=== PATIENT | male | born 1955 | race African-American/Black ===

== ENCOUNTER 2020-12-15 23:54 | Inpatient (IN) | payer MEDICAID, OTHER ==
[~2020-12-15] VITALS: Ht 177.8 cm; Wt 83.9 kg
--- NOTE | 2020-12-16 00:13 | NUR ---
Patient BIB [facility] ambulance unit [id number] from [facility] acute for increase agitation, AMS. Reported that pt is confused but is more aggressive than his baseline. No SOB or labored breathing, afebrile. Clear speech.
[2020-12-16] MEDS ORDERED: HALOPERIDOL LACTATE 5 MG/1 ML VIAL IM ONE (00:15)
[2020-12-16] MEDS ORDERED: HALOPERIDOL LACTATE 5 MG/1 ML VIAL ONE (00:31)
[2020-12-16 01:30] LABS: HEMATOCRIT 41.2 % (36.7-47.1); MEAN CORPUSCULAR VOLUME 90.5 fL (73.0-96.2); PLATELET COUNT (AUTO) 179 K/uL (152-348)
[2020-12-16 01:37] LABS: ETHANOL < 3 MG/DL (0-0)
--- NOTE | 2020-12-16 01:40 | NUR ---
XRAY at beside.
[2020-12-16 01:42] LABS: *BILIRUBIN,URIN NEGATIVE (NEGATIVE); *BLOOD, URINE 2+ (NEGATIVE); *CLARITY,URINE CLOUDY (CLEAR); *COLOR,URINE YELLOW (YELLOW); *KETONES,URINE NEGATIVE (NEGATIVE); LEUKOCYTE ESTERASE ,URINE TRACE (NEGATIVE); NITRITE, URINE POSITIVE (NEGATIVE); UGLUCOSE NEGATIVE (NEGATIVE)
[2020-12-16 01:43] LABS: ALANINE AMINOTRANSFERASE 25 U/L (16-63); ALKALINE PHOSPHATASE 82 U/L (50-136); ASPARTATE AMINOTRANSFERASE 18 U/L (15-37); BILIRUBIN,DIRECT 0.2 mg/dL (0.0-0.2); BILIRUBIN,TOTAL 0.5 mg/dL (0.2-1.0); CARBON DIOXIDE 29 mmol/L (21-32); CHLORIDE 105 mmol/L (98-107); GLUCOSE 97 mg/dL (74-106); POTASSIUM 3.6 mmol/L (3.5-5.1); TOTAL PROTEIN, SERUM 8.1 g/dL (6.4-8.2); UREA NITROGEN, BLOOD 18 mg/dL (7-18)
[2020-12-16 01:50] LABS: BACTERIA,URINE MANY /HPF (NONE SEEN); RBC,URINE 20-50 /HPF (0-3); SQUAMOUS EPITHELIAL CELL,UR FEW /HPF (NONE SEEN)
[2020-12-16 01:56] LABS: *AMPHETAMINE, URINE NEGATIVE (NEGATIVE); *CANNABINOID, URINE NEGATIVE (NEGATIVE); *COCCAINE, URINE NEGATIVE (NEGATIVE); *OPIATE, URINE NEGATIVE (NEGATIVE); *PHENCYCLIDINE SCREEN,URINE NEGATIVE (NEGATIVE)
--- NOTE | 2020-12-16 02:10 | NUR ---
Assisted pt to use urinal. Patient is now resting comfortably in bed with eyes closed.
[2020-12-16] MEDS ORDERED: CEFTRIAXONE 2 G in IV DEXTROSE 5% 100 ML IV ONE (02:30)
[2020-12-16] MEDS ORDERED: CEFTRIAXONE /D5W 50ML IVPB **ER PYXIS IV ONE (02:41)
[2020-12-16] MEDS ORDERED: LISI20TA30 PO (02:49)
[2020-12-16] MEDS ORDERED: DIVA125C2 PO ×3 (02:49)
[2020-12-16] MEDS ORDERED: AMLO-212 PO (02:49)
[2020-12-16] MEDS ORDERED: vitamin d2 PO (02:49)
[2020-12-16] MEDS ORDERED: DOCU-141 PO (02:49)
[2020-12-16] MEDS ORDERED: QUET25TA PO ×3 (02:49)
--- NOTE | 2020-12-16 03:50 | NUR ---
Patient is resting comfortably in bed with eyes closed. bed in lowest position for safety precautions.
--- NOTE | 2020-12-16 04:21 | NUR ---
Gave report to aneesh Valencia going to room 301B med surg bed.
--- NOTE | 2020-12-16 04:24 | NUR ---
Pt. admitted to Med Surg , under care of Dx: UTI Belongs List completed
--- NOTE | 2020-12-16 04:47 | NUR ---
Admitted patient from ER via gurney, awake, alert, calm, cooperative to care. Routine admission care done. Plan of care initiated.
[2020-12-16 05:00] VITALS: BP 160/95
[2020-12-16 05:47] VITALS: BP 160/95
[2020-12-16] MEDS ORDERED: ACETAMINOPHEN 325 MG TABLET PO PRN (06:15)
[2020-12-16] MEDS ORDERED: HYDROCODONE/APAP 5-325MG TABLET PO PRN (06:15)
[2020-12-16] MEDS ORDERED: LORAZEPAM 2 MG/1 ML VIAL IV PRN (06:15)
--- NOTE | 2020-12-16 08:00 | NUR ---
aroused from sleep- pt oriented to self only, repositioned and served breakfast, left arm stiff but able to left up at certain height, able to take meds with apple sauce, aspirtion precaution observed, calm at this time, safety measures maintained,
[2020-12-16] MEDS: CHOLECALCIFEROL 1,000 UNIT TABLET PO SCH (08:31)
[2020-12-16] MEDS: DIVALPROEX SPRINKLE 125 MG CAP.SPRINK PO SCH ×3 (08:31→19:58)
[2020-12-16] MEDS: QUETIAPINE FUMARATE 25 MG TABLET PO SCH ×3 (08:32→19:57)
[2020-12-16] MEDS: AMLODIPINE 5 MG TABLET PO SCH (08:33)
[2020-12-16] MEDS: LISINOPRIL 20 MG TABLET PO SCH (08:33)
[2020-12-16] MEDS: PANTOPRAZOLE SODIUM 40 MG TABLET.DR PO SCH (08:34)
[2020-12-16] MEDS ORDERED: VITAMIN D2 PO SCH (09:00)
--- NOTE | 2020-12-16 09:00 | NUR ---
called Dr Yates for psych consult
[2020-12-16 12:00] VITALS: BP 107/81
[2020-12-16] MEDS ORDERED: QUETIAPINE FUMARATE 25 MG TABLET PO PRN (15:15)
[2020-12-16 16:00] VITALS: BP 122/76
--- NOTE | 2020-12-16 17:42 | NUR ---
Dr Yates here earler and saw pt- see notes and orders
--- NOTE | 2020-12-16 18:31 | NUR ---
family member visiting, no distress noted, 02 at 2l/nc, denies of shortness of breath, head of bed elevated, repositioned and made comfortable, all needs attended and met, safety measures maintained, call light within reach
[2020-12-16] MEDS: DOCUSATE SODIUM 100 MG CAPSULE PO SCH (19:58)
[2020-12-16 20:35] VITALS: BP 138/89
[2020-12-17] MEDS: CEFTRIAXONE 1 G in IV DEXTROSE 5% 50 ML IV SCH ×2 (00:05→23:57)
[2020-12-17 04:20] VITALS: BP 134/74
[2020-12-17] MEDS: PANTOPRAZOLE SODIUM 40 MG TABLET.DR PO SCH (06:10)
[2020-12-17 08:00] VITALS: BP 133/87
[2020-12-17] MEDS: DIVALPROEX SPRINKLE 125 MG CAP.SPRINK PO SCH ×3 (08:38→20:10)
[2020-12-17] MEDS: QUETIAPINE FUMARATE 25 MG TABLET PO SCH ×3 (08:38→20:11)
[2020-12-17] MEDS: LISINOPRIL 20 MG TABLET PO SCH (08:38)
[2020-12-17] MEDS: AMLODIPINE 5 MG TABLET PO SCH (08:39)
[2020-12-17] MEDS: CHOLECALCIFEROL 1,000 UNIT TABLET PO SCH (08:39)
[2020-12-17 10:23] LABS: HEMATOCRIT 42.8 % (36.7-47.1); MEAN CORPUSCULAR HEMOGLOBIN 29.7 uug (23.8-33.4); MEAN CORPUSCULAR VOLUME 92.5 fL (73.0-96.2); PLATELET COUNT (AUTO) 159 K/uL (152-348)
[2020-12-17 10:33] LABS: BILIRUBIN,TOTAL 0.3 mg/dL (0.2-1.0); CREATININE 0.9 mg/dL (0.6-1.3); MAGNESIUM 2.4 mg/dL (1.8-2.4); PHOSPHOROUS 3.1 mg/dL (2.5-4.9); POTASSIUM 3.9 mmol/L (3.5-5.1); TOTAL PROTEIN, SERUM 7.4 g/dL (6.4-8.2)
[2020-12-17 10:43] LABS: THYROID STIMULATING HORMONE 1.063 mIU/mL (0.358-3.740)
[2020-12-17 11:33] VITALS: BP 130/81
[2020-12-17 15:09] VITALS: BP 126/77
[2020-12-17] MEDS: DOCUSATE SODIUM 100 MG CAPSULE PO SCH (20:10)
[2020-12-17 20:36] VITALS: BP 100/76
--- NOTE | 2020-12-18 03:39 | NUR ---
Patient alert and verbally responsive with periods of confusion.On RA ,no s/s of distress noted. Denies pain at this time. Iv on left Fa 20g patent and intact .Administered IV ATB as ordered for UTI , no a/r noted. Due meds given. Patient noted restlessness .Ativan IVP given with good effect. Safety measures in place. VSS.
[2020-12-18 04:33] VITALS: BP 124/84
[2020-12-18] MEDS: PANTOPRAZOLE SODIUM 40 MG TABLET.DR PO SCH (06:03)
[2020-12-18 06:41] LABS: HEMATOCRIT 43.6 % (36.7-47.1); MEAN CORPUSCULAR HEMOGLOBIN 29.9 uug (23.8-33.4); MEAN CORPUSCULAR VOLUME 91.3 fL (73.0-96.2); PLATELET COUNT (AUTO) 187 K/uL (152-348)
[2020-12-18 07:10] LABS: CREATININE 0.9 mg/dL (0.6-1.3); MAGNESIUM 2.4 mg/dL (1.8-2.4); PHOSPHOROUS 3.2 mg/dL (2.5-4.9); POTASSIUM 4.7 mmol/L (3.5-5.1)
--- NOTE | 2020-12-18 07:30 | NUR ---
Received report from BERTO Vu. All questions, comments, and concerns were addressed. Received patient asleep in his assigned bed. Bed is in low and locked position with bed alarm on. Respirations are even and unlabored, no signs of respiratory distress noted. Addendum: 12/18/20 at 1237 by JAMES MORTENSEN RN Received report from BERTO Sanchez. Did not received report from BERTO Vu.
[2020-12-18] MEDS: DIVALPROEX SPRINKLE 125 MG CAP.SPRINK PO SCH ×3 (10:12→20:00)
[2020-12-18] MEDS: CHOLECALCIFEROL 1,000 UNIT TABLET PO SCH (10:12)
[2020-12-18] MEDS: LISINOPRIL 20 MG TABLET PO SCH (10:13)
[2020-12-18] MEDS: QUETIAPINE FUMARATE 25 MG TABLET PO SCH ×3 (10:13→20:00)
[2020-12-18] MEDS: AMLODIPINE 5 MG TABLET PO SCH (10:13)
[2020-12-18 12:00] VITALS: BP 134/87
--- NOTE | 2020-12-18 12:37 | NUR ---
patient is alert and oriented to name only. Patient does not respond in logical, coherent manner. He is mumbling and speaking to himself. Patient appears to be RTIS, speaking and singing to unknown others. Patient is compliant with care. Compliant with medications, crushed. Patient requires 2 staff to perform his care and ADL's because is resistive. Patient requires constant redirection during care. Respirations are even and unlabored.
[2020-12-18 16:00] VITALS: BP 121/71
[2020-12-18 19:59] VITALS: BP 129/89
[2020-12-18] MEDS: DOCUSATE SODIUM 100 MG CAPSULE PO SCH (20:00)
[2020-12-19] MEDS: CEFTRIAXONE 1 G in IV DEXTROSE 5% 50 ML IV SCH (00:31)
[2020-12-19 04:03] VITALS: BP 144/99
--- NOTE | 2020-12-19 05:43 | NUR ---
Patient alert to self. Disoriented, at times yells but is easily distracted. Mumbles often. Patient is agreeable to treatment when it is explained and approval is given by patient before touching him.4 Afebrile. Denies pain. Stable on RA. Very contracted and rigid. Repositioned overnight, no new skin issues noted. Pressure points protected. Large BM this morning. Incontinent urine, diaper on. No acute events occurred overnight.
[2020-12-19] MEDS: PANTOPRAZOLE SODIUM 40 MG TABLET.DR PO SCH (06:21)
[2020-12-19 06:30] LABS: HEMATOCRIT 44.1 % (36.7-47.1); MEAN CORPUSCULAR HEMOGLOBIN 29.8 uug (23.8-33.4); MEAN CORPUSCULAR VOLUME 90.8 fL (73.0-96.2); PLATELET COUNT (AUTO) 209 K/uL (152-348)
[2020-12-19 06:35] LABS: CREATININE 0.9 mg/dL (0.6-1.3); POTASSIUM 4.1 mmol/L (3.5-5.1)
[2020-12-19 08:00] VITALS: BP 147/84
[2020-12-19] MEDS: AMLODIPINE 5 MG TABLET PO SCH (08:25)
[2020-12-19] MEDS: DIVALPROEX SPRINKLE 125 MG CAP.SPRINK PO SCH ×2 (08:25→14:42)
[2020-12-19] MEDS: LISINOPRIL 20 MG TABLET PO SCH (08:26)
[2020-12-19] MEDS: CHOLECALCIFEROL 1,000 UNIT TABLET PO SCH (08:26)
[2020-12-19] MEDS: QUETIAPINE FUMARATE 25 MG TABLET PO SCH ×2 (08:26→14:42)
--- NOTE | 2020-12-19 08:30 | NUR ---
The patient is alert to self. Talks nonsensical. Able to take medications. No distress identified. On room air. Noted with contracted and rigid extremities. Denies pain. Repositioned and frequent safety checks done. Call light within reach. Needs attended;
[2020-12-19 11:24] VITALS: BP 127/71
[2020-12-19] MEDS ORDERED: SULF1TAB48 PO (12:45)
[2020-12-19 15:39] VITALS: BP 133/84
--- NOTE | 2020-12-19 18:01 | NUR ---
dc orders received noted and carried out.dc heplock per md orders.dc instruction and education given to the longterm rn pt left the facility via ambulances in stable condition
== END 2020-12-19 18:05 | DRG 463 ==
LOC: ER 23:59 → MEDSURG3 12-16 04:12
PROVIDERS: ADMIT Family Medicine; ATTEND Nurse Practitioner Acute Care
DX: N39.0 Urinary tract infection, site not specified (principal); G93.41 Metabolic encephalopathy; E44.1 Mild protein-calorie malnutrition; F05 Delirium due to known physiological condition; E88.09 Other disorders of plasma-protein metabolism, not elsewhere classified; F20.9 Schizophrenia, unspecified; I10 Essential (primary) hypertension; F41.9 Anxiety disorder, unspecified; Z79.899 Other long term (current) drug therapy; Z68.26 Body mass index [BMI] 26.0-26.9, adult; F29 Unspecified psychosis not due to a substance or known physiological condition; F01.50 Vascular dementia, unspecified severity, without behavioral disturbance, psychotic disturbance, mood disturbance, and anxiety; Z20.822 Contact with and (suspected) exposure to COVID-19; B95.7 Other staphylococcus as the cause of diseases classified elsewhere
CPT/HCPCS: 36415; 70030-TC; 71045; 80164; 83735; 84100; 84443; 85025; 87086; 93005; G0378; G0480; J0696; J1630; J2060; J7050; J7060

== ENCOUNTER 2021-03-12 14:42 | Inpatient (IN) | payer MEDICAID ==
[~2021-03-12] VITALS: Ht 177.8 cm; Wt 83.9 kg
[~2021-03-12 14:42] MED LIST: AMLO-212 PO; DIVA125C2 PO; DOCU-141 PO; LISI20TA30 PO; QUET25TA PO; SULF1TAB48 PO; vitamin d2 PO
[2021-03-12] MEDS ORDERED: IV NORMAL SALINE 500 ML BAG IV ONE (15:00)
[2021-03-12 15:13] LABS: HEMATOCRIT 33.9 % (36.7-47.1); MEAN CORPUSCULAR HEMOGLOBIN 29.8 uug (23.8-33.4); MEAN CORPUSCULAR VOLUME 90.1 fL (73.0-96.2); PLATELET COUNT (AUTO) 297 K/uL (152-348)
[2021-03-12 15:20] LABS: CREATININE 0.9 mg/dL (0.6-1.3); POTASSIUM 4.1 mmol/L (3.5-5.1)
[2021-03-12] MEDS ORDERED: IV NORMAL SALINE 500 ML IV ONE (15:30)
[2021-03-12 15:33] LABS: BILIRUBIN,DIRECT 0.1 mg/dL (0.0-0.2); BILIRUBIN,TOTAL 0.2 mg/dL (0.2-1.0); TOTAL PROTEIN, SERUM 6.9 g/dL (6.4-8.2)
[2021-03-12 15:43] LABS: THYROID STIMULATING HORMONE 2.164 mIU/mL (0.358-3.740)
[2021-03-12 15:44] LABS: ETHANOL < 3 MG/DL (0-0)
[2021-03-12 16:05] LABS: *BILIRUBIN,URIN NEGATIVE (NEGATIVE); *BLOOD, URINE NEGATIVE (NEGATIVE); *COLOR,URINE YELLOW (YELLOW); *KETONES,URINE TRACE (NEGATIVE); LEUKOCYTE ESTERASE ,URINE TRACE (NEGATIVE); NITRITE, URINE POSITIVE (NEGATIVE); UGLUCOSE NEGATIVE (NEGATIVE)
[2021-03-12 16:12] LABS: *AMPHETAMINE, URINE NEGATIVE (NEGATIVE); *CANNABINOID, URINE NEGATIVE (NEGATIVE); *COCCAINE, URINE NEGATIVE (NEGATIVE); *OPIATE, URINE NEGATIVE (NEGATIVE); *PHENCYCLIDINE SCREEN,URINE NEGATIVE (NEGATIVE)
[2021-03-12 16:13] LABS: *CLARITY,URINE HAZY (CLEAR); RBC,URINE 0-3 /HPF (0-3)
[2021-03-12 16:14] LABS: BACTERIA,URINE MANY /HPF (NONE SEEN); CALCIUM OXALATE CRYSTALS,UR FEW /HPF (NONE SEEN); SQUAMOUS EPITHELIAL CELL,UR FEW /HPF (NONE SEEN)
[2021-03-12] MEDS ORDERED: CEFTRIAXONE 1 G in IV DEXTROSE 5% 50 ML IV SCH (17:15)
[2021-03-12] MEDS ORDERED: IV NORMAL SALINE 1000 ML BAG IV ONE (17:15)
[2021-03-12] MEDS ORDERED: CEFTRIAXONE /D5W 50ML IVPB **ER PYXIS IV ONE (17:16)
[2021-03-12] MEDS ORDERED: KETOROLAC TROMETHAMINE 15 MG INJ IVP ONE (18:00)
[2021-03-12] MEDS ORDERED: KETOROLAC TROMETHAMINE 15 MG INJ ONE (18:05)
--- NOTE | 2021-03-12 18:35 | NUR ---
dr. veronica accepted the pt. transfer pending on bed availability.
--- NOTE | 2021-03-12 19:30 | NUR ---
PERINEAL HYGIENE3 PROVIDED.
[2021-03-12] MEDS ORDERED: MORPHINE SULFATE 2 MG/1 ML DISP.SYRIN IV PRN (20:30)
[2021-03-12] MEDS ORDERED: ACETAMINOPHEN 650 MG SUPP.RECT RC PRN (20:30)
[2021-03-12] MEDS ORDERED: DOCUSATE SODIUM 100 MG CAPSULE PO SCH (21:00)
--- NOTE | 2021-03-12 21:50 | NUR ---
PT TRANSFERED TO FLOOR IN STABLE CONDITION. PT REMAINED CALM, NON-VERBAL THE WHOLE ER STAY, MOVING ON THE BED.
[2021-03-12] MEDS: DIVALPROEX SPRINKLE 125 MG CAP.SPRINK PO SCH (22:27)
[2021-03-12] MEDS: QUETIAPINE FUMARATE 25 MG TABLET PO SCH (22:27)
[2021-03-12] MEDS: DOCUSATE SODIUM 100 MG CAPSULE PO SCH (22:28)
[2021-03-12 23:03] VITALS: BP 125/79
[2021-03-13] VITALS: BP 137/88
[2021-03-13 04:00] VITALS: BP 113/71
[2021-03-13] MEDS: PANTOPRAZOLE SODIUM 40 MG TABLET.DR PO SCH (06:22)
[2021-03-13 07:02] LABS: HEMATOCRIT 35.3 % (36.7-47.1); MEAN CORPUSCULAR HEMOGLOBIN 29.5 uug (23.8-33.4); MEAN CORPUSCULAR VOLUME 91.1 fL (73.0-96.2); PLATELET COUNT (AUTO) 284 K/uL (152-348)
[2021-03-13 07:15] LABS: IRON, SERUM 70 ug/dL (50-175)
[2021-03-13 07:42] LABS: ALANINE AMINOTRANSFERASE 26 U/L (16-63); ALKALINE PHOSPHATASE 95 U/L (50-136); ASPARTATE AMINOTRANSFERASE 25 U/L (15-37); BILIRUBIN,TOTAL 0.4 mg/dL (0.2-1.0); CARBON DIOXIDE 28 mmol/L (21-32); CHLORIDE 107 mmol/L (98-107); CHOLESTEROL 128 mg/dL (<200); CREATININE 0.7 mg/dL (0.6-1.3); GLUCOSE 81 mg/dL (74-106); HDL CHOLESTEROL 28 mg/dL (40-60); MAGNESIUM 2.2 mg/dL (1.8-2.4); PHOSPHOROUS 3.2 mg/dL (2.5-4.9); POTASSIUM 4.1 mmol/L (3.5-5.1); TOTAL PROTEIN, SERUM 7.5 g/dL (6.4-8.2); TRIGLYCERIDES 86 MG/DL (30-150); UREA NITROGEN, BLOOD 16 mg/dL (7-18)
--- NOTE | 2021-03-13 08:00 | NUR ---
confused, doesn't follow commands, just stares at nurse, no distress noted, tele SR, repositioned for breakfast, safety measures maintained, noted to have rigid upper arm and lower legs, incontinent of urine
[2021-03-13] MEDS: LISINOPRIL 20 MG TABLET PO SCH (08:12)
[2021-03-13] MEDS: DIVALPROEX SPRINKLE 125 MG CAP.SPRINK PO SCH ×2 (08:12→20:18)
[2021-03-13] MEDS: QUETIAPINE FUMARATE 25 MG TABLET PO SCH ×2 (08:13→20:17)
[2021-03-13 10:54] LABS: VALPROIC ACID 65 ug/mL (50-100)
[2021-03-13] MEDS ORDERED: Z GUARD REMEDY PASTE 57 GM TUBE TOP PRN (11:45)
--- NOTE | 2021-03-13 11:47 | NUR ---
WOUND CARE CONSULT: PT PRESENTS WITH RT HIP INTACT DEEP TISSUE INJURY WITH SCARRING, SACRAL INCONTINENCE ASSOCIATED SKIN DAMAGE OVER SCAR AND LEFT LATERAL FOOT/ANKLE AND HEEL INTACT DEEP TISSUE INJURIES, PRESENT ON ADMISSION. PT IS INCONTINENT. RECOMMENDATIONS MADE FOR SKIN PROTECTION AND WOUND CARE. DISCUSSED WITH NURSING STAFF. IN AGREEMENT WITH PLAN OF CARE. FIRST STEP LOW AIRLOSS MATTRESS IS ON ORDER. Addendum: 03/13/21 at 1149 by ERIBERTO NIEVES RN Amended: Links added.
[2021-03-13 12:00] VITALS: BP 109/68
--- NOTE | 2021-03-13 12:00 | NUR ---
took his am meds - crushed in apple sauce, aspiration precautions observed. condom cath applied
--- NOTE | 2021-03-13 14:00 | NUR ---
seen by speech therapist for swallow eval. repositioned to side after with pillows for support, heels off loaded.
[2021-03-13] MEDS: IV NS 1000 ML 1,000 ML IV PRN (14:47)
[2021-03-13 16:12] VITALS: BP 127/72
[2021-03-13] MEDS: CEFTRIAXONE 1 G in IV DEXTROSE 5% 50 ML IV SCH (16:26)
--- NOTE | 2021-03-13 18:11 | NUR ---
no distress noted, dozing on and off, all needs attended and met, bed alarm on
[2021-03-13 20:00] VITALS: BP 134/85
--- NOTE | 2021-03-13 20:15 | NUR ---
Patient in bed responsive to name, confused.HOB elevate at 45 .Aspiration precaution observed at all times. Medication given crushed in apple sauce.No coughing noted.Iv on right FA 20g patent and intact with IVF running well at 70 ml/hr.Tolerated well. Condom cath in place. Off load moses heels.Continue safety measures .Will continue to monitor.
[2021-03-13] MEDS: DOCUSATE SODIUM 100 MG CAPSULE PO SCH (20:17)
[2021-03-13] MEDS: Z GUARD REMEDY PASTE 57 GM TUBE TOP SCH (21:10)
[2021-03-14 05:08] VITALS: BP 152/82
[2021-03-14] MEDS: IV NS 1000 ML 1,000 ML IV PRN ×2 (05:49→20:31)
[2021-03-14] MEDS: PANTOPRAZOLE SODIUM 40 MG TABLET.DR PO SCH (06:12)
[2021-03-14 08:00] VITALS: BP 144/81
--- NOTE | 2021-03-14 08:00 | NUR ---
alert but doesn't verbally respond, just looks at nurse, extremities rigid and holds on to something and wont let go, aspiration precautions observed, safety measures in place
[2021-03-14] MEDS: DIVALPROEX SPRINKLE 125 MG CAP.SPRINK PO SCH ×2 (09:07→21:04)
[2021-03-14] MEDS: LISINOPRIL 20 MG TABLET PO SCH (09:07)
[2021-03-14] MEDS: QUETIAPINE FUMARATE 25 MG TABLET PO SCH ×2 (09:07→21:03)
[2021-03-14] MEDS: Z GUARD REMEDY PASTE 57 GM TUBE TOP SCH ×2 (09:09→21:04)
[2021-03-14 09:36] LABS: MEAN CORPUSCULAR HEMOGLOBIN 29.4 uug (23.8-33.4); MEAN CORPUSCULAR VOLUME 89.1 fL (73.0-96.2); PLATELET COUNT (AUTO) 248 K/uL (152-348)
[2021-03-14 09:52] LABS: CARBON DIOXIDE 28 mmol/L (21-32); CHLORIDE 104 mmol/L (98-107); CREATININE 0.7 mg/dL (0.6-1.3); GLUCOSE 113 mg/dL (74-106); POTASSIUM 3.7 mmol/L (3.5-5.1); UREA NITROGEN, BLOOD 14 mg/dL (7-18)
[2021-03-14 11:52] VITALS: BP 106/61
[2021-03-14 15:57] VITALS: BP 137/86
--- NOTE | 2021-03-14 16:00 | NUR ---
repositioned to sides during shift with pillows for support, on first step mattress, heels off loaded at all times, aspiration precautions observed
[2021-03-14] MEDS: CEFTRIAXONE 1 G in IV DEXTROSE 5% 50 ML IV SCH (16:45)
--- NOTE | 2021-03-14 19:02 | NUR ---
no distress noted, mentation the same, all needs attended and met, to be seen by Dr Wynne (psychiatrist) in am
--- NOTE | 2021-03-14 19:40 | NUR ---
Awake, sitting up in semi-stevenson's position, IV intact and patent, no acute distress, will continue to monitor. Call lights within reach, safety measures initiated
[2021-03-14 19:58] VITALS: BP 143/77
[2021-03-14] MEDS: DOCUSATE SODIUM 100 MG CAPSULE PO SCH (21:04)
[2021-03-15 04:22] VITALS: BP 135/89
[2021-03-15] MEDS: PANTOPRAZOLE SODIUM 40 MG TABLET.DR PO SCH (06:10)
--- NOTE | 2021-03-15 06:45 | NUR ---
Awake, slept intermittently throughout the night on air mattress, positioned every 2 hours, IV intact and patent, head of bed elevated to 45 degrees, pt. tolerated medication and care, is responsive to questions when pt. is cooperative, no acute distress noted. Call lights within reach, bed alarm on, safety measures maintain. Will endorse to oncoming shift.
[2021-03-15] MEDS: LISINOPRIL 20 MG TABLET PO SCH (08:28)
[2021-03-15] MEDS: QUETIAPINE FUMARATE 25 MG TABLET PO SCH ×2 (08:28→20:27)
[2021-03-15] MEDS: DIVALPROEX SPRINKLE 125 MG CAP.SPRINK PO SCH ×2 (08:28→20:27)
[2021-03-15] MEDS: Z GUARD REMEDY PASTE 57 GM TUBE TOP SCH ×2 (08:44→20:28)
[2021-03-15] MEDS: IV NS 1000 ML 1,000 ML IV PRN (10:59)
[2021-03-15 11:42] VITALS: BP 148/83
[2021-03-15 15:27] LABS: HEMATOCRIT 31.6 % (36.7-47.1); MEAN CORPUSCULAR HEMOGLOBIN 29.7 uug (23.8-33.4); MEAN CORPUSCULAR VOLUME 88.5 fL (73.0-96.2); PLATELET COUNT (AUTO) 265 K/uL (152-348)
[2021-03-15 15:32] LABS: CARBON DIOXIDE 28 mmol/L (21-32); CHLORIDE 102 mmol/L (98-107); CREATININE 0.7 mg/dL (0.6-1.3); GLUCOSE 113 mg/dL (74-106); POTASSIUM 3.4 mmol/L (3.5-5.1); UREA NITROGEN, BLOOD 10 mg/dL (7-18)
[2021-03-15 15:57] VITALS: BP 160/91
[2021-03-15] MEDS: CEFTRIAXONE 1 G in IV DEXTROSE 5% 50 ML IV SCH (16:12)
[2021-03-15 20:03] VITALS: BP 142/88
[2021-03-15] MEDS: DOCUSATE SODIUM 100 MG CAPSULE PO SCH (20:27)
--- NOTE | 2021-03-15 23:55 | NUR ---
Assumed care of patient. Received patient lying in bed. Asleep> Apperas comfortable. In no apparent distress. No signs or symptoms of pain or SOB. IV site on right FA intact and patent. IVF infusing. Condom catheter intact and draining via gravity. Safety measure in place. Call murguia within reached. Continue to monitor.
[2021-03-16] MEDS: IV NS 1000 ML 1,000 ML IV PRN (02:17)
[2021-03-16 04:03] VITALS: BP 138/77
[2021-03-16] MEDS: PANTOPRAZOLE SODIUM 40 MG TABLET.DR PO SCH (06:04)
--- NOTE | 2021-03-16 06:41 | NUR ---
Patient awake but non-verbal. Able to follow some direction. In no distress. IVF continue to infuse. Beckham catheter intact and draining. Due meds given and taken. Safety measure maintained and call murguia within reached. Addendum: 03/16/21 at 0658 by RINA MARCANO RN Condom catheter intact and draining via gravity.
[2021-03-16 07:12] LABS: HEMATOCRIT 30.7 % (36.7-47.1); MEAN CORPUSCULAR HEMOGLOBIN 29.6 uug (23.8-33.4); MEAN CORPUSCULAR VOLUME 88.5 fL (73.0-96.2); PLATELET COUNT (AUTO) 256 K/uL (152-348)
[2021-03-16 07:16] LABS: CARBON DIOXIDE 28 mmol/L (21-32); CHLORIDE 102 mmol/L (98-107); CREATININE 0.5 mg/dL (0.6-1.3); GLUCOSE 86 mg/dL (74-106); POTASSIUM 3.4 mmol/L (3.5-5.1); UREA NITROGEN, BLOOD 8 mg/dL (7-18)
[2021-03-16] MEDS: DIVALPROEX SPRINKLE 125 MG CAP.SPRINK PO SCH (08:12)
[2021-03-16] MEDS: LISINOPRIL 20 MG TABLET PO SCH (08:12)
[2021-03-16] MEDS: QUETIAPINE FUMARATE 25 MG TABLET PO SCH (08:12)
[2021-03-16] MEDS: Z GUARD REMEDY PASTE 57 GM TUBE TOP SCH (08:33)
[2021-03-16] MEDS ORDERED: POTASSIUM CHLORIDE 20 MEQ TAB.PRT.SR PO ONE (10:30)
[2021-03-16 10:59] VITALS: BP 127/73
[2021-03-16] MEDS ORDERED: PANT40TA49 PO (12:25)
[2021-03-16] MEDS ORDERED: MENT71OI TOP (12:25)
[2021-03-16] MEDS ORDERED: CEPH500C2 PO (12:28)
[2021-03-16] MEDS ORDERED: POTASSIUM CHLORIDE 10 MEQ TAB.PRT.SR PO ONE (12:30)
[2021-03-16 15:28] VITALS: BP 141/89
--- NOTE | 2021-03-16 17:23 | NUR ---
dc orders received noted and carried out.dc instruction and rn report given to the intermediate dc heplock per md orders pt left the facility via ambulances in stable condition
== END 2021-03-16 17:29 | DRG 720 ==
LOC: ER 14:42 → TELE3 21:11 → MEDSURG3 03-13 08:59
PROVIDERS: ADMIT Internal Medicine; ATTEND Nurse Practitioner Acute Care
DX: A41.9 Sepsis, unspecified organism (principal); E43 Unspecified severe protein-calorie malnutrition; G92.8 Other toxic encephalopathy; D68.59 Other primary thrombophilia; F01.51 Vascular dementia, unspecified severity, with behavioral disturbance; E88.09 Other disorders of plasma-protein metabolism, not elsewhere classified; R62.7 Adult failure to thrive; N39.0 Urinary tract infection, site not specified; F20.9 Schizophrenia, unspecified; I10 Essential (primary) hypertension; Z20.822 Contact with and (suspected) exposure to COVID-19; D64.9 Anemia, unspecified; R13.10 Dysphagia, unspecified; R73.9 Hyperglycemia, unspecified; R53.1 Weakness; Z68.26 Body mass index [BMI] 26.0-26.9, adult; B96.89 Other specified bacterial agents as the cause of diseases classified elsewhere; F29 Unspecified psychosis not due to a substance or known physiological condition; R74.8 Abnormal levels of other serum enzymes; N40.1 Benign prostatic hyperplasia with lower urinary tract symptoms
CPT/HCPCS: 36415; 70030-TC; 70450; 71045; 80164; 83550; 83605; 83735; 84100; 84153; 84443; 85025; 86850; 86900; 86901; 87040; 87086; 93005; 97161; A4663; A6209; G0378; G0480; J0696; J1885; J7030; J7040; J7060